=== PATIENT | male | born 2000 | race African-American/Black ===

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

== ENCOUNTER 2021-02-10 10:02 | Emergency (ER) | payer MEDICAID ==
[~2021-02-10] VITALS: Ht 172.7 cm; Wt 88.0 kg
[2021-02-10 12:21] VITALS: BP 115/73
== END 2021-02-10 12:22 | disposition home or self-care (01) ==
LOC: ER 10:02
DX: R10.12 Left upper quadrant pain (principal); R07.89 Other chest pain; R03.0 Elevated blood-pressure reading, without diagnosis of hypertension; Z98.890 Other specified postprocedural states; Z87.828 Personal history of other (healed) physical injury and trauma; Z87.81 Personal history of (healed) traumatic fracture
CPT/HCPCS: 71046; 93005; 99283; Z7610

== ENCOUNTER 2023-01-04 18:12 | Emergency (ER) | payer SELFPAY ==
[~2023-01-04] VITALS: Ht 170.2 cm; Wt 67.0 kg
[2023-01-04 18:21] VITALS: BP 156/91
[2023-01-04] MEDS ORDERED: LIDOCAINE 5% PATCH TOP SCH (18:45)
[2023-01-04] MEDS ORDERED: ACETAMINOPHEN 325MG TABLET PO ONE (18:45)
[2023-01-04] MEDS ORDERED: IBUP-2029 MT (19:45)
[2023-01-04] MEDS ORDERED: HYDR-4001 MT (19:45)
[2023-01-04] MEDS ORDERED: IBUPROFEN 600MG TABLET PO ONE (20:00)
== END 2023-01-04 20:00 | disposition home or self-care (01) ==
LOC: ER 18:12
DX: S20.211A Contusion of right front wall of thorax, initial encounter (principal); R07.81 Pleurodynia; V49.59XA Passenger injured in collision with other motor vehicles in traffic accident, initial encounter; W22.12XA Striking against or struck by front passenger side automobile airbag, initial encounter; Y93.89 Activity, other specified; Y92.488 Other paved roadways as the place of occurrence of the external cause; Z87.828 Personal history of other (healed) physical injury and trauma
CPT/HCPCS: 71101; 99283

== ENCOUNTER 2024-03-13 09:03 | Emergency (ER) | payer MEDICAID ==
[~2024-03-13] VITALS: Ht 170.2 cm; Wt 67.0 kg
[~2024-03-13 09:03] MED LIST: HYDR-4001 MT; IBUP-2029 MT
[2024-03-13 09:06] VITALS: O2SAT 100
[2024-03-13] MEDS ORDERED: IBUP-2028 MT (11:47)
[2024-03-13 12:03] VITALS: BP 125/74; PULSE 100; RESP 16; TEMP 98.3
== END 2024-03-13 12:10 | disposition home or self-care (01) ==
LOC: ER 09:03
DX: M79.89 Other specified soft tissue disorders (principal); Z79.899 Other long term (current) drug therapy
CPT/HCPCS: 29125; 73110; 73130; 99284